=== PATIENT | female | born 1960 | race Caucasian/White ===

== ENCOUNTER 2024-08-29 11:31 | Outpatient (CLI) | payer BC, SELFPAY ==
[2024-08-29 12:44] LABS: Iron 35 ug/dL (37-170)
[2024-08-29 12:54] LABS: Total Iron Binding Capacity 487 ug/dL (265-497)
== END 2024-08-29 23:59 | disposition home or self-care (01) ==
LOC: LAB 11:34
PROVIDERS: Visit Provider Internal Medicine Medical Oncology
DX: D64.9 Anemia, unspecified (principal)
CPT/HCPCS: 36415; 82728; 83540; 83550